=== PATIENT | female | born 1945 | race Caucasian/White ===

== ENCOUNTER → 2017-11-04 | Outpatient (CLI) | payer OTHER ==
[~2017-11-04] MED LIST: ARICEPT5 MG PO; ASPIR 8181 MG PO; ATORVASTATIN CA20 MG PO; BUPROPION HCL100 MG PO; DICYCLOMINE HCL20 MG PO; DILTIAZEM PO; FLUOXETINE HCL20 MG PO; FOSAMAX70 MG PO; GLUCOSAMINE CH1 EAC2 PO; JANUMET 50-1,01 EACH PO; LEVOTHYROXINE75 MCG PO
== END ==
LOC: NPA 11:22
PROVIDERS: ATTEND Internal Medicine Pulmonary Disease
DX: Z02.89 Encounter for other administrative examinations (principal)
CPT/HCPCS: 36415; 83036; 84443

== ENCOUNTER → 2017-11-07 | Outpatient (CLI) | payer OTHER ==
[2017-11-07 17:58] LABS: ANION GAP 14.3 mmol/L (8-16); CREATININE, SERUM 0.98 mg/dL (0.57-1.11); POTASSIUM 3.3 mmol/L (3.5-5.1)
[2017-11-07 18:06] LABS: BASOPHILS % 0.3 % (0.0-1.0); EOSINOPHILS # (AUTO) 0.1 (0.0-0.4); EOSINOPHILS % 2.1 % (0.0-6.0); HEMATOCRIT 33.7 % (34.2-44.1); HEMOGLOBIN 11.5 g/dL (12.0-16.0); LYMPHOCYTES # (AUTO) 1.4 (1.0-3.2); MEAN CORPUSCULAR HEMOGLOBIN 33.1 pg (28-32); MEAN CORPUSCULAR HGB CONC 34.1 g/dL (31-35); MEAN CORPUSCULAR VOLUME 97.1 fL (81-99); MONOCYTES # (AUTO) 0.5 (0.2-0.8); MONOCYTES % 9.3 % (4.4-11.3); NEUTROPHILS # (AUTO) 3.6 (2.1-6.9); PLATELET COUNT 177 x10e3/uL (140-360); RED BLOOD COUNT 3.47 x10e6/uL (3.6-5.1); RED CELL DISTRIBUTION WIDTH 13.7 % (11.7-14.4)
== END ==
LOC: NPA 12:22
PROVIDERS: ATTEND Internal Medicine Pulmonary Disease
DX: Z02.89 Encounter for other administrative examinations (principal)
CPT/HCPCS: 36415; 80048; 85025

== ENCOUNTER → 2017-11-14 | Outpatient (CLI) | payer OTHER ==
[2017-11-14 18:13] LABS: BASOPHILS # (AUTO) 0.1 (0.0-0.1); BASOPHILS % 1.7 % (0.0-1.0); EOSINOPHILS # (AUTO) 0.2 (0.0-0.4); EOSINOPHILS % 3.4 % (0.0-6.0); HEMATOCRIT 37.2 % (34.2-44.1); HEMOGLOBIN 11.6 g/dL (12.0-16.0); LYMPHOCYTES # (AUTO) 1.5 (1.0-3.2); LYMPHOCYTES % 32.8 % (18.0-39.1); MEAN CORPUSCULAR HEMOGLOBIN 28.2 pg (28-32); MEAN CORPUSCULAR HGB CONC 31.2 g/dL (31-35); MEAN CORPUSCULAR VOLUME 90.3 fL (81-99); MONOCYTES # (AUTO) 0.7 (0.2-0.8); NEUTROPHILS # (AUTO) 2.2 (2.1-6.9); NEUTROPHILS % 47.9 % (38.7-80.0); PLATELET COUNT 317 x10e3/uL (140-360); RED BLOOD COUNT 4.12 x10e6/uL (3.6-5.1); RED CELL DISTRIBUTION WIDTH 16.2 % (11.7-14.4)
== END ==
LOC: NPA 12:00
DX: Z02.89 Encounter for other administrative examinations (principal)
CPT/HCPCS: 36415; 85025

== ENCOUNTER 2018-12-23 14:57 | Observation (INO) | payer MEDICARE ==
[~2018-12-23] VITALS: Ht 177.8 cm; Wt 118.4 kg
--- NOTE | 2018-12-23 10:25 | NUR ---
Got report from Lia, ER nurse. Patient is A&Ox2. Call light within reach. Came to unit via stretcher.
--- OUTSIDE RECORDS SUMMARY | 2018-12-23 14:59 | XMS REPORT | Clinical Summary ---
Author Author [facility] Organization [facility] Address Unknown Phone Unavailable Care Team Providers Care Securities Teller Name Role Phone Ce Liang PCP Unavailable Allergies Comments Active Allergy Reactions Severity Noted Date Piroxicam 12/05/2018 Morphine Anaphylaxis High 12/05/2018 Seldane 12/05/2018 Sulfa (Sulfonamide 12/05/2018 Antibiotics) Medications End Date Status Medication Sig Dispensed Refills Start Date 01/04/2019 Active ibuprofen (ADVIL,MOTRIN) Take 1 tablet 9 tablet 0 600 MG tablet (600 mg 9 total) by mouth every 6 (six) hours as needed for mild pain for up to 30 days. 01/04/2019 Active cyclobenzaprine Take 1 tablet 20 tablet 0 (FLEXERIL) 10 mg tablet (10 mg total) 9 by mouth 2 (two) times a day as needed for muscle spasms for up to 30 days. Active Problems Not on file Encounters Care Team Description Date Type Specialty Ingrid Olguin MD Fall, initial encounter (Primary Dx); Acute low back pain, unspecified back pain laterality, with sciatica presence unspecified 12/05/2018 Emergency Emergency Medicine after 12/22/2017 Social History Date Tobacco Use Types Packs/Day Years Used Never Smoker Smokeless Tobacco: Never Used Alcohol Use Drinks/Week oz/Week Comments No Alcohol Habits Answer Date Recorded How often do you have a drink containing alcohol? Never 12/05/2018 How many drinks containing alcohol do you have on Not asked a typical day when you are drinking? How often do you have six or more drinks on one Not asked occasion? Sex Assigned at Date Recorded Not on file Industry Job Start Date Occupation Not on file Not on file Not on file Travel End Travel History Travel Start No recent travel history available. Last Filed Vital Signs Time Taken Vital Sign Reading 12/05/2018 8:00 PM CDT Blood Pressure 169/98 12/05/2018 8:00 PM CDT Pulse 74 12/05/2018 8:00 PM CDT Temperature 37.1 C (98.7 F) 12/05/2018 8:00 PM CDT Respiratory Rate 16 12/05/2018 8:00 PM CDT Oxygen Saturation 94% - Inhaled Oxygen - Concentration 12/05/2018 2:02 PM CDT Weight 110 kg (242 lb) 12/05/2018 2:02 PM CDT Height 179.1 cm (5' 10.5") 12/05/2018 2:02 PM CDT Body Mass Index 34.23 Plan of Treatment Health Maintenance Due Date Last Done Comments BREAST CANCER SCREENING 1993 COLON CANCER SCREENING 1993 SHINGLES VACCINES (#1) 1993 65+ PNEUMOCOCCAL VACCINE 2008 (1 of 2 - PCV13) PNEUMOCOCCAL 2008 POLYSACCHARIDE VACCINE AGE 65 AND OVER INFLUENZA VACCINE 04/26/2018 Procedures Comments Procedure Name Priority Date/Time Associated Diagnosis XR LUMBAR SPINE COMPLETE STAT 12/05/2018 4+ VW 6:02 PM CDT XR THORACIC SPINE 3 VW STAT 12/05/2018 6:02 PM CDT XR SHOULDER 2+ VW LEFT STAT 12/05/2018 6:01 PM CDT XR CHEST 1 VW PORTABLE STAT 12/05/2018 6:[address] HEAD WO CONTRAST STAT 12/05/2018 3:[address] CERVICAL SPINE WO STAT 12/05/2018 CONTRAST 3:34 PM CDT after 12/22/2017 Results * XR Lumbar Spine Complete 4+ Vw (12/05/2018 6:02 PM CDT) Narrative Performed At EXAMINATION:XR LUMBAR SPINE COMPLETE 4VW [facility] CLINICAL HISTORY:[place] TECHNIQUE: AP, lateral bilateral posterior oblique, views of the lumbar spine were obtained. COMPARISON: None. IMPRESSION: There are postsurgical changes of L2-S1 posterior spinal fusion with bilateral screws and vertical rods with associated laminectomies and interbody graft at L5-S1. Hardware is grossly intact with S1 screws protruding slightly anterior to the anterior aspect of the sacrum. No definite acute lumbar spine fracture identified noting osteopenia decreases sensitivity for detection of acute fracture. There is mild height loss of L1 vertebral body anteriorly. There is atherosclerosis of the abdominal aorta and subtle levocurvature of the lumbar spine. There is L1-L2 disc degeneration with endplate sclerosis and osteophytosis. [id number] Procedure Note Interface, Radiology Results Incoming - 12/05/2018 6:22 PM CDT EXAMINATION: XR LUMBAR SPINE COMPLETE 4 VW CLINICAL HISTORY: Fracture shoulder TECHNIQUE: AP, lateral bilateral posterior oblique, views of the lumbar spine were obtained. COMPARISON: None. IMPRESSION: There are postsurgical changes of L2-S1 posterior spinal fusion with bilateral screws and vertical rods with associated laminectomies and interbody graft at L5-S1. Hardware is grossly intact with S1 screws protruding slightly anterior to the anterior aspect of the sacrum. No definite acute lumbar spine fracture identified noting osteopenia decreases sensitivity for detection of acute fracture. There is mild height loss of L1 vertebral body anteriorly. There is atherosclerosis of the abdominal aorta and subtle levocurvature of the lumbar spine. There is L1-L2 disc degeneration with endplate sclerosis and osteophytosis. [id number] Performing Organization Address [facility] [employer] Phone Number [email or web address] [place] [address] * XR Thoracic Spine 3 Vw (12/05/2018 6:02 PM CDT) Narrative Performed At EXAMINATION:XR THORACIC SPINE 3 VW [facility] CLINICAL HISTORY:Mid-back T-spine paininitial exam COMPARISON:None. FINDINGS: 3 views of the thoracic spine were obtained. Vertebral bodies are normal in height. No vertebral fracture. Degenerative changes. Alignment is normal. Soft tissues are normal. IMPRESSION: No acute osseous abnormality of the thoracic spine. [facility]-[id number] Procedure Note Interface, Radiology Results Incoming - 12/05/2018 6:08 PM CDT EXAMINATION: XR THORACIC SPINE 3 VW CLINICAL HISTORY: Mid-back T-spine pain initial exam COMPARISON: None. FINDINGS: 3 views of the thoracic spine were obtained. Vertebral bodies are normal in height. No vertebral fracture. Degenerative changes. Alignment is normal. Soft tissues are normal. IMPRESSION: No acute osseous abnormality of the thoracic spine. [facility]-[id number] Performing Organization Address [facility]/[employer] Phone Number [email or web address] [place] [address] * XR Shoulder 2+ Vw Left (12/05/2018 6:01 PM CDT) Narrative Performed At EXAMINATION:XR SHOULDER 2VW LEFT [facility] CLINICAL HISTORY:fall COMPARISON:None. IMPRESSION: An intramedullary sherlyn is seen within the left humerus. The sherlyn spans an old fracture through the proximal left humerus. The left humerus appears to articulate normally with the glenoid fossa. Mild osteoarthritic degenerative changes seen within the glenohumeral joint. Bony resorption of the distal clavicle is seen. The acromioclavicular joint and coracoclavicular space are grossly intact. The clavicle is grossly unremarkable. The visualized portions of the left hemithorax are unremarkable. [facility]-[id number] Procedure Note Interface, Radiology Results Incoming - 12/05/2018 6:07 PM CDT EXAMINATION: XR SHOULDER 2 VW LEFT CLINICAL HISTORY: fall COMPARISON: None. IMPRESSION: An intramedullary sherlyn is seen within the left humerus. The sherlyn spans an old fracture through the proximal left humerus. The left humerus appears to articulate normally with the glenoid fossa. Mild osteoarthritic degenerative changes seen within the glenohumeral joint. Bony resorption of the distal clavicle is seen. The acromioclavicular joint and coracoclavicular space are grossly intact. The clavicle is grossly unremarkable. The visualized portions of the left hemithorax are unremarkable. [id number] Performing Organization Address City/State/[facility] Phone Number [facility] [address] [place] [address] * XR Chest 1 Vw Portable (12/05/2018 6:00 PM CDT) Narrative Performed At EXAMINATION:XR CHEST 1 VW PORTABLE [facility] CLINICAL HISTORY:fall COMPARISON:None IMPRESSION: An AP radiograph of the chest was submitted for interpretation. The lungs are hyperinflated. No focal consolidation or pleural effusion. No pneumothorax or midline shift. The mediastinal contours and cardiac silhouette are unremarkable. Orthopedic hardware is seen within the proximal left humerus. The bones are otherwise unremarkable. [facility]-[id number] Procedure Note Interface, Radiology Results Incoming - 12/05/2018 6:05 PM CDT EXAMINATION: XR CHEST 1 VW PORTABLE CLINICAL HISTORY: fall COMPARISON: None IMPRESSION: An AP radiograph of the chest was submitted for interpretation. The lungs are hyperinflated. No focal consolidation or pleural effusion. No pneumothorax or midline shift. The mediastinal contours and cardiac silhouette are unremarkable. Orthopedic hardware is seen within the proximal left humerus. The bones are otherwise unremarkable. [id number] Performing Organization Address City/State/Zipcode Phone Number [facility] [address] [place] [address] * CT Head Wo Contrast (12/05/2018 3:47 PM CDT) Narrative Performed At Procedure:[facility]:INGRID MENDOZA HISTORY:fall COMPARISON: None TECHNIQUE: Axial images were obtained of the head without intravenous contrast. All CT scan performed using radiation dose reduction techniques. Technical factors are evaluated and adjusted to ensure appropriate moderation of exposure. Automated dose management technology is applied to adjust the radiation dose to minimize expose whileachieving a diagnostic quality image. FINDINGS: Age-appropriate cortical atrophy is noted. Sandhu-white matter differentiation is maintained. The ventricular system is symmetric and midline. Moderate ischemic small vessel white matter disease is seen. 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 There is no evidence of acute hemorrhage. Nointra-axial or extra-axial lesion is seen. Mild mucosal thickening of the ethmoid air cells is noted. The visualized portion of the orbits, paranasal sinuses and mastoid air cells is otherwise unremarkable. The calvarium is intact. Scattered atherosclerotic calcifications of the intracranial vessel are noted. IMPRESSION: No CT evidence of acute intracranial abnormality or hemorrhage. [id number] Procedure Note Interface, Radiology Results Incoming - 12/05/2018 3:58 PM CDT Procedure:CT HEAD WO CONTRAST REFERRING PHYSICIAN:INGRID MENDOZA HISTORY: fall COMPARISON: None TECHNIQUE: Axial images were obtained of the head without intravenous contrast. All CT scan performed using radiation dose reduction techniques. Technical factors are evaluated and adjusted to ensure appropriate moderation of exposure. Automated dose management technology is applied to adjust the radiation dose to minimize expose while achieving a diagnostic quality image. FINDINGS: Age-appropriate cortical atrophy is noted. Sandhu-white matter differentiation is maintained. The ventricular system is symmetric and midline. Moderate ischemic small vessel white matter disease is seen. 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 There is no evidence of acute hemorrhage. No intra-axial or extra-axial lesion is seen. Mild mucosal thickening of the ethmoid air cells is noted. The visualized portion of the orbits, paranasal sinuses and mastoid air cells is otherwise unremarkable. The calvarium is intact. Scattered atherosclerotic calcifications of the intracranial vessel are noted. IMPRESSION: No CT evidence of acute intracranial abnormality or hemorrhage. [id number] Performing Organization Address City/State/Zipcode Phone Number [facility] [address] [place] [address] * CT Cervical Spine Wo Contrast (12/05/2018 3:34 PM CDT) Narrative Performed At EXAMINATION:CT CERVICAL SPINE WO CONTRAST [facility] CT IMAGING WAS PERFORMED WITH ITERATIVE RECONSTRUCTION TECHNIQUE AND/OR AUTOMATED EXPOSURE CONTROL TO REDUCE RADIATION DOSE. CLINICAL HISTORY:C-spine fusionfollow up COMPARISON:None. TECHNIQUE: Axial helical CT images throughout the cervical spine were performed without IV contrast. Sagittal and coronal reformatted images were generated. FINDINGS: 1.There is no definite evidence of acute fracture, traumatic subluxation, or prevertebral soft tissue swelling. There are fragmented anterior osteophytes at the anterior inferior aspect of the centrum of C4 and to much lesser degree C5 which are probably chronic although acute osteophyte fracture cannot be excluded. There is no prevertebral soft tissue swelling. There is also minimal loss of vertical height of the anterior aspect of the centrum of T1 but no acute fracture demonstrated. There is otherwise no acute abnormality. 2.There is moderate ventral spondylosis and disc space narrowing at C4-5 and C5-6. There is mild ventral spondylosis at C6-7 and lesser degree C3-4. There are marked degenerative and hypertrophic changes in the facet joint on the right at C3-4 with milder changes on the left side where there is also grade 1 spondylolisthesis. There is slight retrolisthesis is C4-5 where there are mild degenerative changes the facet joints. There are mild degenerative changes the facet joints at C5-6 where there is also slight retrolisthesis. There is moderate degenerative change in the facet joint on the left at C6-7 and to less on the right side as well as mild degenerative change in the facet joint left greater than right at C7-T1. 3. The findings result in no significant spinal canal stenosis. There is moderate foraminal stenosis right greater than left C3-4, moderate to marked foraminal stenosis right and mild to moderate foraminal stenosis left C4-5, mild to moderate foraminal stenosis left and mild foraminal stenosis right C5-6. IMPRESSION: No definite acute cervical spine bony abnormality. See discussion above. Degenerative changes. [facility]-[id number] Procedure Note Interface, Radiology Results - 12/05/2018 3:57 PM CDT EXAMINATION: CT CERVICAL SPINE WO CONTRAST CT IMAGING WAS PERFORMED WITH ITERATIVE RECONSTRUCTION TECHNIQUE AND/OR AUTOMATED EXPOSURE CONTROL TO REDUCE RADIATION DOSE. CLINICAL HISTORY: C-spine fusion follow up COMPARISON: None. TECHNIQUE: Axial helical CT images throughout the cervical spine were performed without IV contrast. Sagittal and coronal reformatted images were generated. FINDINGS: 1. There is no definite evidence of acute fracture, traumatic subluxation, or prevertebral soft tissue swelling. There are fragmented anterior osteophytes at the anterior inferior aspect of the centrum of C4 and to much lesser degree C5 which are probably chronic although acute osteophyte fracture cannot be excluded. There is no prevertebral soft tissue swelling. There is also minimal loss of vertical height of the anterior aspect of the centrum of T1 but no acute fracture demonstrated. There is otherwise no acute abnormality. 2. There is moderate ventral spondylosis and disc space narrowing at C4-5 and C5- 6. There is mild ventral spondylosis at C6-7 and lesser degree C3-4. There are marked degenerative and hypertrophic changes in the facet joint on the right at C3-4 with milder changes on the left side where there is also grade 1 spondylolisthesis. There is slight retrolisthesis is C4-5 where there are mild degenerative changes the facet joints. There are mild degenerative changes the facet joints at C5-6 where there is also slight retrolisthesis. There is moderate degenerative change in the facet joint on the left at C6-7 and to less on the right side as well as mild degenerative change in the facet joint left greater than right at C7-T1. 3. The findings result in no significant spinal canal stenosis. There is moderate foraminal stenosis right greater than left C3-4, moderate to marked foraminal stenosis right and mild to moderate foraminal stenosis left C4-5, mild to moderate foraminal stenosis left and mild foraminal stenosis right C5-6. IMPRESSION: No definite acute cervical spine bony abnormality. See discussion above. Degenerative changes. [facility]-[id number] Performing Organization Address City/State/Zipcode Phone Number [facility] [address] [place] [phone] after 12/22/2017 Insurance Payer Benefit Subscriber ID Type Phone Address Plan / Group [employer] MEDICARE HUMANA xxxxxxxxx PPO MEDICARE PPO/PFFS/E RS [facility] Advance Directives Patient has advance care planning documents on file. For more information, maximino e contact: Johnnie Mercado [address] [place] [address]
--- OUTSIDE RECORDS SUMMARY | 2018-12-23 15:00 | XMS REPORT ---
Author Author Winston Montero Organization [employer] Address Unknown Phone Unavailable Care Team Providers Care Scenic Artist Name Role Phone Winston Montero CP Unavailable Allergies, Adverse Reactions, Alerts Substance Reaction Event Type Morphine Sulfate Info Not Available Drug Allergy Feldene Info Not Available Drug Allergy Most sulfa type drugs Info Not Available Non Drug Allergy Seldene Info Not Available Non Drug Allergy Problems Problem Type Condition Code Onset Dates Condition Status Assessment NSTEMI (non-ST elevated myocardial infarction) I21.4 Active Problem Benign hypertensive heart disease without congestive heart failure I11.9 Active Problem Atherosclerosis of [place] coronary artery of [place] heart without angina pectoris I25.10 Active Problem Anxiety F41.9 Active Assessment Anxiety F41.9 Active Assessment Atherosclerosis of [place] coronary artery of [place] heart without angina pectoris I25.10 Active Problem NSTEMI (non-ST elevated myocardial infarction) I21.4 Active Assessment Benign hypertensive heart disease without congestive heart failure I11.9 Active Medications Medication Code System Code Instructions Start Date End Date Status Dosage Seroquel [facility] 76723541688 25 MG Orally Once a day Active 1 tablet Exelon [facility] [address]-92 Transdermal Once a day Active 1 patch to skin Omeprazole [facility] [address]-27 20 MG Orally Twice a day Active 1 capsule Fosamax [facility] [address]-75 70 MG Orally Once a week Active 1 tablet Ondansetron [facility] 26711145514 4 MG Orally every 8 hrs Active 1 tablet on the tongue and allow to dissolve Aspirin [facility] 48949916152 81 MG Orally Active not defined Senna [facility] [address]48-[address] Active not defined Vitamin D-3 [facility] [address]69[address] Active not defined Gabapentin [facility] [address]-99 100 MG Orally Once a day Active 1 capsule Diltiazem HCl [facility] [address]-73 120 MG Orally Once a day hold if top BP is less than 110, bottom less than 70 Active 1 tablet before meals Levothyroxine Sodium [facility] 14616785522 75 MCG Orally Once a day Active 1 tablet on an empty stomach in the morning Glucosamine Chondr Complex [facility] 76728120070 500-400 MG Orally Once a day Active 1 capsule with a meal [place] [facility] 38151885540 5-325 MG Orally every 6 hrs Active 1 tablet as needed Fluoxetine HCl [facility] 05188757453 20 mg Orally twice a day (bid) Active 1 capsule in the morning Cozaar [facility] [address]-74 Active not defined Lorazepam [facility] [address]-32 0.5 MG Orally Twice a day Active 1 tablet as needed Vital Signs Date/Time: January 16, 2018 BMI 39.25 Index Weight 201 lbs Height 5'11 in Cardiac Monitoring Heart Rate 68 /min Blood Pressure Diastolic 64 mm Hg Blood Pressure Systolic 138 mm Hg Results No Known Results Summary Purpose [employer] Submission
--- OUTSIDE RECORDS SUMMARY | 2018-12-23 15:00 | XMS REPORT ---
Author Author Winston Montero Organization [employer] Address Unknown Phone Unavailable Care Team Providers Care Electrical Engineering Director Name Role Phone Winston Montero CP Unavailable Allergies, Adverse Reactions, Alerts Substance Reaction Event Type Morphine Sulfate Info Not Available Drug Allergy Feldene Info Not Available Drug Allergy Most sulfa type drugs Info Not Available Non Drug Allergy Seldene Info Not Available Non Drug Allergy Problems Problem Type Condition Code Onset Dates Condition Status Assessment Precordial pain R07.2 Active Assessment Atherosclerosis of [place] coronary artery of [place] heart without angina pectoris I25.10 Active Assessment NSTEMI (non-ST elevated myocardial infarction) I21.4 Active Problem Anxiety F41.9 Active Problem Benign hypertensive heart disease without congestive heart failure I11.9 Active Problem 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 Assessment Benign hypertensive heart disease without congestive heart failure I11.9 Active Assessment Anxiety F41.9 Active Problem Atherosclerosis of [place] coronary artery of [place] heart without angina pectoris I25.10 Active Problem NSTEMI (non-ST elevated myocardial infarction) I21.4 Active Assessment Shortness of breath R06.02 Active Assessment 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 Assessment Other symptoms involving cardiovascular system R09.89 Active Medications Medication Code System Code Instructions Start Date End Date Status Dosage Fosamax [facility] 90355913045 70 MG Orally Once a week Active 1 tablet Diltiazem HCl [facility] 40288821685 120 MG Orally Once a day hold if top BP is less than 110, bottom less than 70 Active 1 tablet before meals Levothyroxine Sodium [facility] 39218303093 75 MCG Orally Once a day Active 1 tablet on an empty stomach in the morning Fair Play [facility] [address]-68 5-325 MG Orally twice a day Active 1 tablet as needed Fluoxetine HCl [facility] 99524290138 20 mg Orally twice a day (bid) Active 1 capsule in the morning Exelon [facility] [address]-02 Transdermal Once a day Active 1 patch to skin Seroquel [facility] 03729976149 25 MG Orally Once a day Active 1 tablet Senna [facility] [address] Active not defined Ondansetron [facility] 23895586485 4 MG Orally every 8 hrs Active 1 tablet on the tongue and allow to dissolve Omeprazole [facility] 88578075326 20 MG Orally Twice a day Active 1 capsule Glucosamine Chondr Complex [facility] 39283340503 500-400 MG Orally Once a day Active 1 capsule with a meal Vitamin D-3 [facility] 0[address] Active not defined Gabapentin [facility] 93827578315 300 MG Orally Once a day Active 1 capsule Aspirin [facility] 01161884607 81 MG Orally Active not defined Lorazepam [facility] 00659604789 0.5 MG Orally Twice a day Active 1 tablet as needed Vital Signs Date/Time: March 21, 2018 BMI 42.77 Index Weight 219 lbs Height 5'11 in Cardiac Monitoring Heart Rate 72 /min Blood Pressure Diastolic 68 mm Hg Blood Pressure Systolic 128 mm Hg Results No Known Results Summary Purpose [employer] Submission
--- OUTSIDE RECORDS SUMMARY | 2018-12-23 15:00 | XMS REPORT | Encounter Summary ---
Author Organization Unknown Address [address] [place] [address] Phone [phone] Care Team Providers Care Creel Clerk Name Role Phone Ce Liang APN 3 [phone] Reason for Visit Medical Complaint Instructions 1. Acute urinary tract infection urinalysis, dipstick cefuroxime axetil 250 mg tablet culture, urine 2. Right flank pain flank pain: care instructions 3. Body mass index 30+ - obesity Discussion Note Pt. is NAD. Take medications as prescribed; f/u with PCP within 2-3 days should symptoms worsen as discussed. ER precautions and Care instructions given. Verbalized all instructions. No further questions upon d/c. Plan of Care Patient Instructions Take your antibiotics as directed. Do not stop taking them just because you feel better. You need to take the full course of antibiotics. Drink extra water and other fluids for the next day or two. This may help wash out the bacteria that are causing the infection. Avoid drinks that are carbonated or have caffeine. They can irritate the bladder. Urinate often. Try to empty your bladder each time. To relieve pain, take a hot bath or lay a heating pad set on low over your lower belly or genital area. Never go to sleep with a heating pad in place. To Prevent UTI's in the future, lau sure to: Drink plenty of water each day. This helps you urinate often, which clears bacteria from your system. Consider adding cranberry juice to your diet. Urinate when you need to. Urinate right after you have sex. Change sanitary pads often. Avoid douches, bubble baths, feminine hygiene sprays, and other feminine hygiene products that have deodorants. After going to the bathroom, wipe from front to back. Reminders Provider Appointments None recorded. Lab Urinalysis, Dipstick 05/13/2018 [facility] Culture, Urine 05/13/2018 [facility] Referral None recorded. Procedures None recorded. Surgeries None recorded. Imaging None recorded. Medications Name Start Date alendronate 70 mg tablet Aspir-Low 81 mg tablet,delayed release TAKE 1 TABLET BY MOUTH EVERY DAY cefuroxime axetil 250 mg tablet Take 1 tablet every 12 hours by oral route as directed for 5 days. dicyclomine 20 mg tablet Exelon Patch 4.6 mg/24 hr transdermal fluoxetine 20 mg capsule Fluzone High-Dose 4253-5774 (PF) 180 mcg/0.5 mL intramuscular syringe gabapentin 300 mg capsule levothyroxine 75 mcg tablet lorazepam 0.5 mg tablet losartan 50 mg tablet omeprazole 20 mg capsule,delayed release ondansetron HCl 4 mg tablet quetiapine 25 mg tablet Medications Administered None recorded. Vitals Height Weight BMI Blood Pressure 5 ft 11.5 in 228 lbs 31.4 kg/m2 120/70 mm[Hg] Lab Results Date Name Specimen Result Interpretation Description Value Range Status Address 05/13/2018 Urinalysis, Dipstick Color : Yellow [facility]: [address] [place] [address] Clarity : Clear [facility]: [address] [place] [address] Leukocytes : Small [facility]: [address] [place] [address] Nitrites : Negative [facility]: [address] [place] [address] Urobilinogen : Normal [facility]: [address] [place] [address] Protein : Trace [facility]: [address] [place] [address] Ph : 5.5 [facility]: [address] [place] [address] Blood : Hemolyzed Trace [facility]: [address] [place] [address] Specific [place] : 1.010 [facility]: [address] [place] [address] Ketones : Negative [facility]: [address] [place] [address] Bilirubin : Negative [facility]: [address] [place] [address] Glucose Negative [facility]: [address] [place] [address] Allergies Code Code System Name Reaction Severity Status Onset 19720503 RxNorm Feldene Active 7052 RxNorm Morphine Active Seldane Active Sulfa (Sulfonamide Antibiotics) Active Problems Name Status Onset Date Source Acute Urinary Tract Infection Active 05/13/2018 Procedures Date Name Performed by Cholecystectomy Information not available Hysterectomy Information not available Vaccine List None recorded. Social History Smoking Status Never Smoker Past Encounters 05/13/2018 Acute Urinary Tract Infection; Right Flank Pain; Body Mass Index 30+ - Obesity Deborah Tucker, JASON-C: [address] [facility], [place] [address], Ph. History of Present Illness [id number] Reported By: Patient HPI: Location: urethra. Quality: pain, burning. Severity: worsening, mild. Duration: started 5 day ago, constant. Onset/Timing: gradual. Context: not sexually active, no known exposure to STD, no prior history of STDs, history of urine cultures/antibiotic treatment, wipes anterior to posterior. Modifying factors ; Has not tried anything OTC; Reports has heavy caffeine intake which has worsened it. Associated Symptoms: no fever/chills, no jaundice, no blood in the urine, no vaginal discharge, no blisters on genitals, no rash on genitals, no muscle aches, no headache, flank pain, pain during urination, urgency, urinary frequency Notes: No other symptoms reported Review of Systems:ROS as noted in the HPI Review of Systems Basic Reported By: Patient Physical Exam Adult Basic, Adult Female Complete Reported By: Patient Constitutional: General Appearance: healthy-appearing, well-nourished, well-developed. Level of Distress: NAD. Ambulation: ambulating normally Psychiatric: Mental Status: active and alert. Orientation: to time, to place, to person Lungs: Respiratory effort: no dyspnea, no tachypnea, no use of accessory muscles, no intercostal retractions. Auscultation: breath sounds normal Cardiovascular: Heart Auscultation: RRR, no murmurs Neurologic: Gait and Station: normal gait, normal station Skin: Inspection and palpation: no rash, no lesions, no ulcer, no abnormal nevi, no induration, no nodules, good turgor, no jaundice; On visible skin. Nails: normal Abdomen: Bowel Sounds: normal. Inspection and Palpation: soft, non-distended, no tenderness, no guarding, no rebound tenderness, no masses, CVA tenderness. Liver: non-tender, no hepatomegaly. Spleen: non-tender, no splenomegaly. Hernia: none palpable
--- OUTSIDE RECORDS SUMMARY | 2018-12-23 15:00 | XMS REPORT ---
Author Author Winston Montero Organization [employer] Address Unknown Phone Unavailable Care Team Providers Care House Wirer Helper Name Role Phone Winston Montero CP Unavailable [...] heart failure I11.9 Active Problem Atherosclerosis of [place] coronary artery of [place] heart without angina pectoris I25.10 Active Problem Anxiety F41.9 Active Assessment Anxiety F41.9 Active Assessment Atherosclerosis of [place] coronary artery of [place] heart without angina pectoris I25.10 Active Problem NSTEMI (non-ST elevated myocardial infarction) I21.4 Active Assessment Benign hypertensive heart disease without congestive heart failure I11.9 Active Medications Medication Code System Code Instructions Start Date End Date Status Dosage Exelon [facility] [address]-28 Transdermal Once a day Active 1 patch to skin Cozaar [facility] [address]-52 Active not defined Fluoxetine HCl [facility] 55564442066 20 mg Orally twice a day (bid) Active 1 capsule in the morning Levothyroxine Sodium [facility] 40186152957 75 MCG Orally Once a day Active 1 tablet on an empty stomach in the morning Seroquel [facility] [address]-25 Active not defined Vital Signs Date/Time: Nov 17, 2017 BMI 39.45 Index Weight 202 lbs Height 5'11 in Cardiac Monitoring Heart Rate 79 /min Blood Pressure Diastolic 72 mm Hg Blood Pressure Systolic 126 mm Hg Results No Known Results Summary Purpose [employer] Submission
--- OUTSIDE RECORDS SUMMARY | 2018-12-23 15:00 | XMS REPORT | Continuity of Care Document ---
Author Author [facility] Interface Address Unknown Phone Unavailable Problems Problem Status Onset Date Classification Date Reported Comments Source Body mass index 30+ - obesity 05/13/2018 Diagnosis 05/13/2018 [facility] Right flank pain 05/13/2018 Diagnosis 05/13/2018 [facility] Acute urinary tract infection 05/13/2018 Diagnosis 05/13/2018 [facility] Acute Urinary Tract Infection 05/13/2018 Problem 05/13/2018 [facility] NSTEMI Active Diagnosis 04/27/2018 Winston Montero Benign hypertensive heart disease without congestive heart failure Active Problem 04/27/2018 Winston Montero Atherosclerosis of [place] coronary artery of [place] heart without angina pectoris Active Diagnosis 04/27/2018 Winston Montero Anxiety Active Problem 04/27/2018 Winston Montero Precordial pain Active Diagnosis 04/27/2018 Winston Montero Atheroscler-limb&claudic Active Problem 04/27/2018 Winston Montero Shortness of breath Active Diagnosis 04/27/2018 Winston Montero Other symptoms involving cardiovascular system Active Diagnosis 04/27/2018 Winston Montero Medications Medication Details Route Status Patient Instructions Ordering Provider Order Date Source Alendronic acid 70 MG Oral Tablet alendronate 70 mg tablet Active [facility] Aspirin 81 MG Delayed Release Oral Tablet [Aspir-Low] Aspir- Low 81 mg tablet,delayed release TAKE 1 TABLET BY MOUTH EVERY DAY Active [facility] Cefuroxime 250 MG Oral Tablet cefuroxime axetil 250 mg tablet Take 1 tablet every 12 hours by oral route as directed for 5 days. Active [facility] Dicyclomine Hydrochloride 20 MG Oral Tablet dicyclomine 20 mg tablet Active [facility] 24 HR rivastigmine 0.192 MG/HR Transdermal System [Exelon] Exelon Patch 4.6 mg/24 hr transdermal Active [facility] Fluoxetine 20 MG Oral Capsule fluoxetine 20 mg capsule Active [facility] 0.5 ML influenza A virus A/[place] (H3N2) antigen 0.12 MG/ML / influenza A virus A/ (H1N1) antigen 0.12 MG/ML / influenza B virus B/[place]/ antigen 0.12 MG/ML Prefilled Syringe [Fluzone 7857-2276] Fluzone High-Dose 8152-6744 (PF) 180 mcg/0.5 mL intramuscular syringe Active [facility] gabapentin 300 MG Oral Capsule gabapentin 300 mg capsule Active [facility] Levothyroxine Sodium 0.075 MG Oral Tablet levothyroxine 75 mcg tablet Active [facility] Lorazepam 0.5 MG Oral Tablet lorazepam 0.5 mg tablet Active [facility] Losartan Potassium 50 MG Oral Tablet losartan 50 mg tablet Active [facility] Omeprazole 20 MG Delayed Release Oral Capsule omeprazole 20 mg capsule,delayed release Active [facility] Ondansetron 4 MG Oral Tablet ondansetron HCl 4 mg tablet Active [facility] quetiapine 25 MG Oral Tablet quetiapine 25 mg tablet Active [facility] Exelon 1 patch to skin Transdermal Active Transdermal Once a day [facility] Cozaar not defined NA Active [facility] Fluoxetine HCl 1 capsule in the morning Orally Active 20 mg Orally twice a day (bid) [facility] Levothyroxine Sodium 1 tablet on an empty stomach in the morning Orally Active 75 MCG Orally Once a day [facility] Seroquel not defined NA Active [facility] Fosamax 1 tablet Orally Active 70 MG Orally Once a week [facility] Diltiazem HCl 1 tablet before meals Orally Active 120 MG Orally Once a day hold if top BP is less than 110, bottom less than 70 [facility] [place] 1 tablet as needed Orally Active 5-325 MG Orally twice a day [facility] Seroquel 1 tablet Orally Active 25 MG Orally Once a day [facility] Senna not defined NA Active [facility] Ondansetron 1 tablet on the tongue and allow to dissolve Orally Active 4 MG Orally every 8 hrs [facility] Omeprazole 1 capsule Orally Active 20 MG Orally Twice a day [facility] Glucosamine Chondr Complex 1 capsule with a meal Orally Active 500-400 MG Orally Once a day [facility] Vitamin D-3 not defined NA Active [facility] Gabapentin 1 capsule Orally Active 300 MG Orally Once a day [facility] Aspirin not defined Orally Active 81 MG Orally [facility] Lorazepam 1 tablet as needed Orally Active 0.5 MG Orally Twice a day [facility] Omeprazole 1 capsule Orally Active 20 MG Orally Twice a day [facility] Fosamax 1 tablet Orally Active 70 MG Orally Once a week [facility] Gabapentin 1 capsule Orally Active 100 MG Orally Once a day [facility] Diltiazem HCl 1 tablet before meals Orally Active 120 MG Orally Once a day hold if top BP is less than 110, bottom less than 70 [facility] [place] 1 tablet as needed Orally Active 5-325 MG Orally every 6 hrs [facility] Lorazepam 1 tablet as needed Orally Active 0.5 MG Orally Twice a day [facility] Allergies, Adverse Reactions, Alerts Substance Category Reaction Severity Reaction type Status Date Reported Comments Source Morphine Sulfate Adverse Reaction Info Not Available Adverse Reaction Active 03/21/2018 [facility] Most sulfa type drugs Adverse Reaction Info Not Available Adverse Reaction Active 03/21/2018 [facility] Seldene Adverse Reaction Info Not Available Adverse Reaction Active 03/21/2018 [facility] Morphine Allergy to substance 05/13/2018 [facility] Sulfa (Sulfonamide Antibiotics) Allergy to substance 05/13/2018 [facility] Seldane Allergy to substance 05/13/2018 [facility] Feldene Allergy to substance 05/13/2018 [facility] Immunizations Immunization Date Given Site Status Last Updated Comments Source Results Order Name Results Value Reference Range Date Interpretation Comments Source Urinalysis macro (dipstick) panel - Urine COLOR : Yellow 05/13/2018 [facility] Urinalysis macro (dipstick) panel - Urine CLARITY : Clear 05/13/2018 [facility] Urinalysis macro (dipstick) panel - Urine LEUKOCYTES : Small 05/13/2018 [facility] Urinalysis macro (dipstick) panel - Urine NITRITES : Negative 05/13/2018 [facility] Urinalysis macro (dipstick) panel - Urine UROBILINOGEN : Normal 05/13/2018 [facility] Urinalysis macro (dipstick) panel - Urine PROTEIN : Trace 05/13/2018 [facility] Urinalysis macro (dipstick) panel - Urine pH : 5.5 05/13/2018 [facility] Urinalysis macro (dipstick) panel - Urine BLOOD : Hemolyzed Trace 05/13/2018 [facility] Urinalysis macro (dipstick) panel - Urine SPECIFIC GRAVITY : 1.010 05/13/2018 [facility] Urinalysis macro (dipstick) panel - Urine KETONES : Negative 05/13/2018 [facility] Urinalysis macro (dipstick) panel - Urine BILIRUBIN : Negative 05/13/2018 [facility] Urinalysis macro (dipstick) panel - Urine GLUCOSE Negative 05/13/2018 [facility] Vital Signs Vital Sign Value Date Comments Source Diastolic (mm Hg) 70 05/13/2018 [facility] Height 71.5 05/13/2018 [facility] Systolic (mm Hg) 120 05/13/2018 [facility] Weight 228 05/13/2018 [facility] Weight 219 03/21/2018 Ahmed Ahmed Heart Rate 72 03/21/2018 Ahmed Ahmed Diastolic (mm Hg) 68 03/21/2018 Ahmed Ahmed Systolic (mm Hg) 128 03/21/2018 Ahmed [facility] Weight 201 01/16/2018 Ahmed Ahmed Heart Rate 68 01/16/2018 Ahmed Ahmed Diastolic (mm Hg) 64 01/16/2018 Ahmed Ahmed Systolic (mm Hg) 138 01/16/2018 Ahmed Ahmed Weight 202 11/17/2017 Ahmed Ahmed Heart Rate 79 11/17/2017 Ahmed Ahmed Diastolic (mm Hg) 72 11/17/2017 Ahmed Ahmed Systolic (mm Hg) 126 11/17/2017 Ahmed Ahmed Encounters Location Location Details Encounter Type Encounter Number Reason For Visit Attending Provider ADM Date DC Date Status Source [place] - [facility] - [id number] Tucker, CHARGER-C: [address] [place] [address], Ph. [id number] Deborah Tucker 05/13/2018 [facility] Procedures Procedure Code Date Perfomer Comments Source Cholecystectomy [facility] Hysterectomy [facility]
[2018-12-23] MEDS ORDERED: EXELON1 EAC1 (15:21)
[2018-12-23] MEDS ORDERED: SENNA LAX8.6 MG (15:21)
[2018-12-23] MEDS ORDERED: ONDANSETRON2 MG/1 ML PO (15:21)
[2018-12-23] MEDS ORDERED: NORCO 5-325 TA1 EACH PO (15:21)
[2018-12-23] MEDS ORDERED: QUETIAPINE FUMA25 MG (15:21)
[2018-12-23] MEDS ORDERED: GABAPENTIN300 MG PO (15:21)
[2018-12-23] MEDS ORDERED: LOSARTAN POTAS100 MG PO (15:21)
[2018-12-23] MEDS ORDERED: LORAZEPAM0.5 MG PO (15:21)
[2018-12-23] MEDS ORDERED: HYDROCHLOROTHIA25 MG (15:21)
[2018-12-23] MEDS ORDERED: HYDROCODONE/APAP 10MG-325MG TAB PO ONE (16:30)
--- NOTE | 2018-12-23 17:03 | Diagnostic Imaging Report ---
Exams: Head and cervical spine CTs without IV contrast History: Trauma, fall, pain Comparison studies: No prior exams are available on the PACS for comparison the time of dictation. Technique: Axial images were obtained from the brain and cervical spine. Coronal and sagittal images reconstructed from the axial data. Dose modulation, iterative reconstruction, and/or weight based adjustment of the mA/kV was utilized to reduce the radiation dose to as low as reasonably achievable. Intravenous contrast: None Findings: Head CT: Scalp: No abnormalities. Bones: No fractures, blastic or lytic lesions. Extra-axial spaces: No masses. No fluid collections. Brain sulci: Mildly prominent. Ventricles: Mild compensatory dilatation. No hydrocephalus. Parenchyma: No mass, acute hemorrhage or acute cortical vascular insults. Confluent hypodensity in the supratentorial white matter are nonspecific but most compatible with chronic microvascular ischemic changes. Mild generalized volume loss with slightly greater distortion volume loss along the anteromedial temporal lobes and hippocampus (left greater than right). Similar findings can be seen along the Alzheimer's/dementia spectrum in in the appropriate clinical setting. Sellar/suprasellar region: No abnormalities. Craniocervical junction: The foramen magnum is patent. No Chiari one malformation. Cervical spine CT: Fractures: None. Soft tissues: No gross abnormalities. Atlantoaxial articulation: Intact with moderate degenerative changes. Alignment: Minimal anterolisthesis of C3 3 on C4 is most likely degenerative in etiology. Mild kyphosis centered at C4-C5. Cervicomedullary junction: No abnormalities. The foramen magnum is patent. Vertebrae: No infection or neoplasm. Degenerative changes: Mildly degenerated disks at C4-C5, C5-C6. No significant canal stenosis. Varying degrees of moderate to severe multilevel facet arthrosis. Multilevel uncovertebral and facet arthrosis result in multilevel foraminal stenosis (moderate bilaterally at C3-C4, moderate right and mild left at C4-C5, moderate left and mild right at C5-C6). Incidental findings: Atherosclerotic calcifications in the carotid siphons in in the left intradural vertebral artery. IMPRESSION: Head CT: 1. No acute abnormalities. 2. Severe chronic microvascular ischemic changes. 3. Mild generalized volume loss with disproportionate anteromedial temporal lobe and hippocampal atrophy as described above. Cervical spine CT: 1. No cervical spine fracture or acute subluxation. 2. Minimal anterolisthesis of C3 on C4 is likely degenerative. 3. Multilevel degenerative changes as described. 4. Cannot exclude ligament, spinal cord and or vascular abnormalities on the basis of this examination. Signed by: Dr. Niels Corral M.D. on 12/23/2018 4:59 PM
--- NOTE | 2018-12-23 17:33 | Diagnostic Imaging Report ---
History: Trauma, fall, pain Comparison studies: None available at the time of dictation. Technique: Axial images were obtained through the lumbar spine. Coronal and sagittal images reconstructed from the axial data. Dose modulation, iterative reconstruction, and/or weight based adjustment of the mA/kV was utilized to reduce the radiation dose to as low as reasonably achievable. Intravenous contrast: None Findings: Extensive bone demineralization and artifact from metallic fusion hardware limit evaluation of finding toe including evaluation for subtle fractures. Number of non-rib bearing vertebral bodies: 5 Alignment: Mild lumbar curvature convex to the left. Soft tissues: Chronic postsurgical changes in the dorsal lumbosacral soft tissues Paraspinal muscles: Moderate to severe symmetric dorsal lumbar paraspinal muscular atrophy. Sacroiliac joints: Mild degenerative changes bilaterally. Vertebrae: Bones are demineralized. Age-indeterminate nondisplaced fracture at the junction of a prominent right anterior marginal osteophyte and and lateral margin of the right L2 vertebral body. Chronic-appearing nondisplaced fracture along the superior margin of the the same anterolateral osteophyte at the L1 level. Chronic-appearing superior L1 endplate compression fracture with approximate 40% height loss. No retropulsion. Postsurgical changes of posterior lateral L2-S1 fusion with bilateral fixation rods fixated via bilateral transpedicular screws from L2 through L5 and transsacral screws at S1 without evidence of hardware failure or hardware loosening. Bilateral laminectomies are present from L2 to L5 S1 and there are L5-S1 discectomy changes with disc spacer in place. Degenerative changes: L1-L2: Mild loss of disc height with vacuum phenomenon. Disc bulge with thickened and ossified ligamentum flavum and severe facet arthrosis with moderate to severe canal stenosis and severe right and mild left foraminal stenosis. L2-L3: Mildly degenerated disc with bilateral facet arthrosis. No significant canal or foraminal stenosis. L3-L4: Mildly degenerated disc with facet arthrosis without significant canal or foraminal stenosis. L4-L5: Degenerated disc and facet arthrosis with mild bilateral foraminal stenosis. No significant canal stenosis. L5-S1: Bilateral facet arthrosis with mild bilateral foraminal stenosis. No significant canal stenosis. Additional findings: Calcified atherosclerosis in the abdominal aorta IMPRESSION: 1. Age-indeterminate nondisplaced fracture along an L2 right anterior marginal osteophyte at its junction with the vertebral body. 2. Chronic-appearing superior L1 endplate compression fracture. 3. Prior L2-S1 laminectomies and posterior fusion and L5-S1 discectomy. 4. Significantly demineralized bones. 5. Multilevel degenerative changes most notable for moderate to severe canal stenosis and severe right foraminal stenosis at L1-L2. Findings discussed with Dr. Robertson at 5:20 PM on 12/23/2018. Signed by: Dr. Niels Corral M.D. on 12/23/2018 5:30 PM
[2018-12-23 17:44] LABS: CLARITY,URINE CLEAR (CLEAR); COLOR,URINE YELLOW (YELLOW)
[2018-12-23 17:45] LABS: BILIRUBIN,URINE NEGATIVE (NEGATIVE); KETONES,URINE NEGATIVE (NEGATIVE); LEUKOCYTE ESTERASE ,URINE NEGATIVE (NEGATIVE); NITRITE,URINE NEGATIVE (NEGATIVE); PROTEIN,URINE DIPSTICK NEGATIVE (NEGATIVE); URINE UROBILINOGEN 0.2 mg/dL (0.2 - 1)
[2018-12-23 17:50] LABS: RBC,URINE 0-5 /HPF (0-5); WBC,URINE (MAN) 0-5 /HPF (0-5)
[2018-12-23 17:51] LABS: HYALINE CASTS 0-1 (0-1)
[2018-12-23 18:47] LABS: BASOPHILS % 0.4 % (0.0-1.0); EOSINOPHILS # (AUTO) 0.1 (0.0-0.4); EOSINOPHILS % 0.6 % (0.0-6.0); HEMATOCRIT 36.1 % (34.2-44.1); HEMOGLOBIN 12.3 g/dL (12.0-16.0); LYMPHOCYTES # (AUTO) 2.4 (1.0-3.2); MEAN CORPUSCULAR HEMOGLOBIN 32.5 pg (28-32); MEAN CORPUSCULAR HGB CONC 34.1 g/dL (31-35); MEAN CORPUSCULAR VOLUME 95.5 fL (81-99); MONOCYTES # (AUTO) 0.8 (0.2-0.8); MONOCYTES % 9.1 % (4.4-11.3); NEUTROPHILS # (AUTO) 5.2 (2.1-6.9); NEUTROPHILS % 61.5 % (38.7-80.0); PLATELET COUNT 196 x10e3/uL (140-360); RED BLOOD COUNT 3.78 x10e6/uL (3.6-5.1); RED CELL DISTRIBUTION WIDTH 11.5 % (11.7-14.4)
[2018-12-23 18:51] LABS: INR 1.02; PROTHROMBIN TIME 13.9 seconds (11.9-14.5)
[2018-12-23 18:52] LABS: PARTIAL THROMBOPLASTIN TIME 25.2 seconds (23.8-35.5)
--- NOTE | 2018-12-23 19:10 | NUR ---
Walking rounds with TIM Fitzgerald. Patient in no distress at this time.
[2018-12-23 19:18] LABS: ALBUMIN 3.1 g/dL (3.5-5.0); ALBUMIN/GLOBULIN RATIO 0.7 (0.8-2.0); CALCIUM 10.4 mg/dL (8.4-10.2); CREATININE, SERUM 1.49 mg/dL (0.57-1.11); MAGNESIUM 1.8 MG/DL (1.3-2.1)
[2018-12-23 19:37] LABS: CREATINE KINASE MB 0.3 ng/mL (0-5.0); THYROID STIMULATING HORMONE 0.438 uIU/mL (0.350-4.940)
--- OUTSIDE RECORDS SUMMARY | 2018-12-23 19:44 | XMS REPORT ---
Author Author [facility] Address Unknown Phone Unavailable Care Team Providers Care Research Rn Spec Name Role Phone Tessa MARTINEZ Unavailable Unavailable Problems This patient has no known problems. Allergies, Adverse Reactions, Alerts This patient has no known allergies or adverse reactions. Medications This patient has no known medications. Results Test Description Test Time Test Comments Text Results Atomic Results Result Comments CT LUMBAR SPINE WO 2018-12-23 17:05:00 [place] [id number] Patient Name: FRANKLIN CASANOVA MR #: [id number] : 1945 Age/Sex: 73/F Req #: [id number] Adm Physician: Ordered by: SALONI MARTINEZ MD Report #: [id number] Location: ER Room/Bed: Procedure: [id number] CT/CT LUMBAR SPINE WO Exam Date: 12/23/18 Exam Time: 1600 REPORT STATUS: Signed History: Trauma, fall, pain Comparison studies: None avail able at the time of dictation. Technique: Axial images were obtained through the lumbar spine. Coronal and sagittal images reconstructed from the axial data. Dose modulation, iterative reconstruction, and/or weight based adjustment of the mA/kV was utilized to reduce the radiation dose to as low as reasonably achievable. Intravenous contrast: None Findings: Extensive bone demineralization and artifact from metallic fusion hardware limit evaluation of finding toe including evaluation for subtle fractures. Number of non-rib bearing vertebral bodies: 5 Alignment: Mild lumbar curvature convex to the left. Soft tissues: Chronic postsurgical changes in the dorsal lumbosacral soft tissues Paraspinal muscles: Moderate to severe symmetric dorsal lumbar paraspinal muscular atrophy. Sacroiliac joints: Mild degenerative changes bilaterally. Vertebrae: Bones are demineralized. Age-indeterminate nondisplaced fracture at the junction of a prominent right anterior marginal osteophyte and and lateral margin of the right L2 vertebral body. Chronic-appearing nondisplaced fracture along the superior margin of the the same anterolateral osteophyte at the L1 level. Chronic-appearing superior L1 endplate compression fracture with approximate 40% height loss. No retropulsion. Postsurgical changes of posterior lateral L2-S1 fusion with bilateral fixation rods fixated via bilateral transpedicular screws from L2 through L5 and transsacral screws at S1 without evidence of hardware failure or hardware loosening. Bilateral laminectomies are present from L2 to L5 S1 and there are L5-S1 discectomy changes with disc spacer in place. Degenerative changes: L1-L2: Mild loss of disc height with vacuum phenomenon. Disc bulge with thickened and ossified ligamentum flavum and severe facet arthrosis with moderate to severe canal stenosis and severe right and mild left foraminal stenosis. L2-L3: Mildly degenerated disc with bilateral facet arthrosis. No significant canal or foraminal stenosis. L3-L4: Mildly degenerated disc with facet arthrosis without significant canal or foraminal stenosis. L4-L5: Degenerated disc and facet arthrosis with mild bilateral foraminal stenosis. No significant canal stenosis. L5-S1: Bilateral facet arthrosis with mild bilateral foraminal stenosis. No si gnificant canal stenosis. Additional findings: Calcified atherosclerosis in the abdominal aorta IMPRESSION: 1. Age-indeterminate nondisplaced fracture along an L2 right anterior marginal osteophyte at its junction with the vertebral body. 2. Chronic-appearing superior L1 endplate compression fracture. 3. Prior L2-S1 laminectomies and posterior fusion and L5-S1 discectomy. 4. Significantly demineralized bones. 5. Multilevel degenerative changes most notable for moderate to severe canal stenosis and severe right foraminal stenosis at L1-L2. Findings discussed with Dr. Martinez at 5:20 PM on 12/23/2018. Signed by: Dr. Galindo Corral M.D. on 12/23/2018 5:30 PM Dictated By: GALINDO CORRAL MD 29 Transcribed By: TAN on 12/23/181729 COPY TO: SALONI MARTINEZ MD CT CERVICAL SPINE WO 2018-12-23 16:47:00 [place] [id number] Patient Name: FRANKLIN CASANOVA MR #: [id number] : 1945 Age/Sex: 73/F Req #: [id number] Adm Physician: Ordered by: SALONI MARTINEZ MD Report #: [id number] Location: ER Room/Bed: Procedure: [id number] CT/CT CERVICAL SPINE WO Exam Date: Exam Time: REPORT STATUS: Signed Exams: Head and cervical spine CTs without IV contrast History: Trau ma, fall, pain Comparison studies: No prior exams are available on the PACS for comparison the time of dictation. Technique: Axial images were obtained from the brain and cervical spine. Coronal and sagittal images reconstructed from the axial data. Dose modulation, iterative reconstruction, and/or weight based adjustment of the mA/kV was utilized to reduce the radiation dose to as low as reasonably achievable. Intravenous contrast: None Findings: Head CT: Scalp: No abnormalities. Bones: No fractures, blastic or lytic lesions. Extra-axial spaces: No masses. No fluid collections. Brain sulci: Mildly prominent. Ventricles: Mild compensatory dilatation. No hydrocephalus. Parenchyma: No mass, acute hemorrhage or acute cortical vascular insults. Confluent hypodensity in the supratentorial white matter are nonspecific but most compatible with chronic microvascular ischemic changes. Mild generalized volume loss with slightly greater distortion volume loss along the anteromedial temporal lobes and hippocampus (left greater than right). Similar findings can be seen along the Alzheimer's/dementia spectrum in in the appropriate clinical setting. Sellar/suprasellar region: No abnormalities. Craniocervical junction: The foramen magnum is patent. No Chiari one malformation. Cervical spine CT: Fractures: None. Soft tissues: No gross abnormalities. Atlantoaxial articulation: Intact with moderate degenerative changes. Alignment: Minimal anterolisthesis of C3 3 on C4 is most likely degenerative in etiology. Mild kyphosis centered at C4-C5. Cervicomedullary junction: No abnormalities. The foramen magnum is patent. Vertebrae: No infection or neoplasm. Degenerative changes: Mildly degenerated disks at C4-C5, C5-C6. No significant canal stenosis. Varying degrees of moderate to severe multilevel facet arthrosis. Multilevel uncovertebral and facet arthrosis result in multilevel foraminal stenosis (moderate bilaterally at C3-C4, moderate right and mild left at C4-C5, moderate left and mild right at C5-C6). Incidental findings: Atherosclerotic calcifications in the carotid siphons in in the left intradural vertebral artery. IMPRESSION: Head CT: 1. No acute abnormalities. 2. Severe chronic microvascular ischemic changes. 3. Mild generalized volume loss with disproportionate anteromedial temporal lobe and hippocampal atrophy as described above. Cervical spine CT: 1. No cervical spine fracture or acute subluxation. 2. Minimal anterolisthesis of C3 on C4 is likely degenerative. 3. Multilevel degenerative changes as described. 4. Cannot exclude ligament, spinal cord and or vascular abnormalities on the basis of this examination. Signed by: Dr. Galindo Corral M.D. on 12/23/2018 4:59 PM Dictated By: GALINDO CORRAL MD 58 Transcribed By: TAN on 12/23/181658 COPY TO: SALONI MARTINEZ MD CT BRAIN WO 2018-12-23 16:47:00 [place] [id number] Patient Name: FRANKLIN CASANOVA MR #: [id number] : 1945 Age/Sex: 73/F Req #: [id number] Adm Physician: Ordered by: SALONI MARTINEZ MD Report #: [id number] Location: ER Room/Bed: Procedure: [id number] CT/CT BRAIN WO Exam Date: Exam Time: REPORT STATUS: Signed Exams: Head and cervical spine CTs without IV contrast History: Trauma, fall, pain Comparison studies: No prior exams are available on the PACS for comparison the time of dictation. Technique: Axial images were obtained from the brain and cervical spine. Coronal and sagittal images reconstructed from the axial data. Dose modulation, iterative reconstruction, and/or weight based adjustment of the mA/kV was utilized to reduce the radiation dose to as low as reasonably achievable. Intravenous contrast: None Findings: Head CT: Scalp: No abnormalities. Bones: No fractures, blastic or lytic lesions. Extra-axial spaces: No masses. No fluid collections. Brain sulci: Mildly prominent. Ventricles: Mild compensatory dilatation. No hydrocephalus. Parenchyma: No mass, acute hemorrhage or acute cortical vascular insults. Confluent hypodensity in the supratentorial white matter are nonspecific but most compatible with chronic microvascular ischemic changes. Mild generalized volume loss with slightly greater distort ion volume loss along the anteromedial temporal lobes and hippocampus (left greater than right). Similar findings can be seen along the Alzheimer's/dementia spectrum in in the appropriate clinical setting. Sellar/suprasellar region: No abnormalities. Craniocervical junction: The foramen magnum is patent. No Chiari one malformation. Cervical spine CT: Fractures: None. Soft tissues: No gross abnormalities. Atlantoaxial articulation: Intact with moderate degenerative changes. Alignment: Minimal anterolisthesis of C3 3 on C4 is most likely degenerative in etiology. Mild kyphosis centered at C4-C5. Cervicomedullary junction: No abnormalities. The foramen magnum is patent. Vertebrae: No infection or neoplasm. Degenerative changes: Mildly degenerated disks at C4-C5, C5-C6. No significant canal stenosis. Varying degrees of moderate to severe multilevel facet arthrosis. Multilevel uncovertebral and facet arthrosis result in multilevel foraminal stenosis (moderate bilaterally at C3-C4, moderate right and mild left at C4-C5, moderate left and mild right at C5-C6). Incidental findings: Atherosclerotic calcifications in the carotid siphons in in the left intradural vertebral artery.
--- OUTSIDE RECORDS SUMMARY | 2018-12-23 19:44 | XMS REPORT | Clinical Summary ---
Author Author [facility] Address Unknown Phone Unavailable Care Team Providers Care Family Law Attorney Name Role Phone Ce Liang PCP Unavailable [...] disc degeneration with endplate sclerosis and osteophytosis. [facility]-[id number] Procedure Note Interface, Radiology Results Incoming - [...] disc degeneration with endplate sclerosis and osteophytosis. [facility]-[id number] Performing Organization Address [facility] Phone Number [facility] [address] [place] [address] * XR Thoracic Spine 3 Vw (12/05/2018 6:02 PM CDT) Narrative Performed At EXAMINATION:XR THORACIC SPINE 3 VW [facility] CLINICAL HISTORY:Mid-back T-spine paininitial exam COMPARISON:None. FINDINGS: 3 views of the thoracic spine were obtained. Vertebral bodies are normal in height. No vertebral fracture. Degenerative changes. Alignment is normal. Soft tissues are normal. IMPRESSION: No acute osseous abnormality of the thoracic spine. [facility]-[id number] Procedure Note Interface, Radiology Results Incoming - 12/05/2018 6:08 PM CDT EXAMINATION: XR THORACIC SPINE 3 VW CLINICAL HISTORY: Mid-back T-spine pain initial exam COMPARISON: None. FINDINGS: 3 views of the thoracic spine were obtained. Vertebral bodies are normal in height. No vertebral fracture. Degenerative changes. Alignment is normal. Soft tissues are normal. IMPRESSION: No acute osseous abnormality of the thoracic spine. [facility]-[id number] Performing Organization Address [facility]/[employer] Phone Number [employer] [address] [place] [address] * XR Shoulder 2+ Vw Left (12/05/2018 [...] portions of the left hemithorax are unremarkable. [facility]-[id number] Procedure Note Interface, Radiology Results Incoming - [...] portions of the left hemithorax are unremarkable. [facility]-[id number] Performing Organization Address City/State/[facility] Phone Number [facility] [address] [place] [address] * XR Chest 1 Vw Portable (12/05/2018 [...] left humerus. The bones are otherwise unremarkable. [facility]-[id number] Procedure Note Interface, Radiology Results Incoming - [...] left humerus. The bones are otherwise unremarkable. [id number] Performing Organization Address City/State/Zipcode Phone Number [facility] [address] [place] [address] * CT Head Wo Contrast (12/05/2018 3:47 PM CDT) Narrative Performed At Procedure:[facility] REFERR[facility]ICIAN:INGRID MENDOZA HISTORY:fall COMPARISON: [...] evidence of acute intracranial abnormality or hemorrhage. [id number] Procedure Note Interface, Radiology Results Incoming - [...] evidence of acute intracranial abnormality or hemorrhage. [id number] Performing Organization Address City/State/Zipcode Phone Number [facility] [address] [place] [address] * CT Cervical Spine Wo Contrast (12/05/2018 [...] bony abnormality. See discussion above. Degenerative changes. [facility]-[id number] Procedure Note Interface, Radiology Results - 12/05/2018 [...] bony abnormality. See discussion above. Degenerative changes. [id number] Performing Organization Address City/State/Zipcode Phone Number [facility] [address] [place] [id number] after 12/22/2017 Insurance Payer Benefit Subscriber ID Type Phone Address Plan / Group HU[employer]NA MEDICARE HUMANA xxxxxxxxx PPO MEDICARE PPO/PFFS/E RS [facility] Advance Directives Patient has advance care planning documents on file. For more information, maximino e contact: Johnnie Mercado [address] [place] [address]
[2018-12-23] MEDS ORDERED: SODIUM CHLORIDE 0.9% 1000ML 1,000 ML IV ONE (19:45)
[2018-12-23] MEDS ORDERED: HYDROCODONE/APAP 10MG-325MG TAB PO PRN (19:45)
[2018-12-23 22:00] VITALS: BP 130/62
[2018-12-23 23:30] VITALS: BP 130/62
[2018-12-24] VITALS (7 sets, daily range): BP systolic 123–158; BP diastolic 59–97
[2018-12-24] MEDS ORDERED: SODIUM CHLORIDE 0.9% 1000ML 1,000 ML ONE (00:12)
[2018-12-24] MEDS: ONDANSETRON HCL INJ 2MG/ML 2ML 2 MG/ML VIAL IV PRN (05:00)
[2018-12-24 05:42] LABS: BASOPHILS % 0.4 % (0.0-1.0); EOSINOPHILS # (AUTO) 0.2 (0.0-0.4); EOSINOPHILS % 2.4 % (0.0-6.0); HEMATOCRIT 34.6 % (34.2-44.1); HEMOGLOBIN 11.7 g/dL (12.0-16.0); LYMPHOCYTES # (AUTO) 2.2 (1.0-3.2); MEAN CORPUSCULAR HEMOGLOBIN 32.2 pg (28-32); MEAN CORPUSCULAR HGB CONC 33.8 g/dL (31-35); MEAN CORPUSCULAR VOLUME 95.3 fL (81-99); MONOCYTES # (AUTO) 0.8 (0.2-0.8); MONOCYTES % 10.5 % (4.4-11.3); NEUTROPHILS # (AUTO) 4.1 (2.1-6.9); NEUTROPHILS % 56.6 % (38.7-80.0); PLATELET COUNT 163 x10e3/uL (140-360); RED BLOOD COUNT 3.63 x10e6/uL (3.6-5.1); RED CELL DISTRIBUTION WIDTH 11.6 % (11.7-14.4)
[2018-12-24 06:03] LABS: ALBUMIN 2.9 g/dL (3.5-5.0); ALBUMIN/GLOBULIN RATIO 0.7 (0.8-2.0); ANION GAP 13.5 mmol/L (8-16); CALCIUM 10.1 mg/dL (8.4-10.2); CREATININE, SERUM 1.4 mg/dL (0.57-1.11); POTASSIUM 3.5 mmol/L (3.5-5.1)
--- NOTE | 2018-12-24 06:53 | NUR ---
Gave report to oncoming nurse. Patient in bed. No pain or distress. call light within reach.
--- NOTE | 2018-12-24 10:00 | NUR ---
Patient and daughter at bedside (POA) received the notice form Medicare VARGAS. Form has been signed, copied placed in chart and the other given to POA.
[2018-12-24] MEDS ORDERED: ACETAMINOPHEN/CODEINE 300MG - 30MG TAB PO PRN (10:30)
--- NOTE | 2018-12-24 11:20 | NUR ---
Patient back from Hip Xray, stable, denies any pain this time, Dr Ornelas here for rounds
--- NOTE | 2018-12-24 11:38 | Diagnostic Imaging Report ---
Exam: AP pelvis and left and right hip History: Pain Comparison: None. Findings: No fracture or malalignment. Mild degenerative arthrosis of the hips. No abnormal soft tissue calcification or soft tissue defect. Impression: No acute osseous abnormality Signed by: Dr. Cruzito Ortiz M.D. on 12/24/2018 11:35 AM
[2018-12-24] MEDS ORDERED: ACETAMINOPHEN 325 MG TAB PO PRN (11:45)
[2018-12-24] MEDS: ACETAMINOPHEN/CODEINE 300MG - 30MG TAB PO PRN (14:19)
[2018-12-24] MEDS: LIDOCAINE 5% PATCH TP SCH (14:19)
[2018-12-24 15:37] LABS: FOLATE 11.5 ng/mL (7.0-15.4)
[2018-12-24] MEDS: FLUOXETINE HCL 20 MG CAP PO SCH (17:15)
[2018-12-24] MEDS: ENOXAPARIN SOD INJ 40 MG/0.4 ML SYR SC SCH (17:15)
--- NOTE | 2018-12-24 18:55 | NUR ---
Got report from previous nurse. call light within reach. Patient in bed.
--- NOTE | 2018-12-24 19:02 | History and Physical ---
CHIEF COMPLAINT: Falls, altered mental status. HISTORY OF PRESENT ILLNESS: This is a 73-year-old female, who was brought in by her daughter due to acute mental status changes and frequent falls at home. According to the patient and the daughter at bedside, the patient has been falling down for significant number of times over the last several weeks. She also endorses to have chronic back pain and which her assisted living physician has prescribed her several sedative medications. After reviewing her home medications, she takes Seroquel, Ativan, Mentor, among others, likely leading to her frequent falls. The patient is currently alert and oriented x3. Back to normal baseline according to the daughter. She does endorse that she occasionally will get confused and forgets to take her medications. Neurology was consulted. There is no reports of any chest pain, palpitation, nausea, or vomiting. The patient was seen and evaluated at bedside on the medical floor. Currently, she is doing well with no other issues. REVIEW OF SYSTEMS: Pertinent positives: Frequent falls, confusion. Pertinent negatives: Denies any chest pain, palpitation, nausea, vomiting, diarrhea, dysuria, hematuria, frequency, urgency, lightheadedness, dizziness, abdominal pain, headaches, shortness of breath, cough, congestion, fever, or any other complaints. Rest of 14-point review of systems have been reviewed with the patient and are negative. ALLERGIES: SULFA, MORPHINE, TERFENADINE, FELDENE. HOME MEDICATIONS: Fosamax 70 mg at bedtime, gabapentin 300 mg p.o. b.i.d., hydrochlorothiazide 25 mg daily, Mentor 5/325 I believe she takes it daily, Ativan 0.5 mg a day, Seroquel 25 mg daily, senna. She also takes sitagliptin and metformin, diltiazem, aspirin, fluoxetine, levothyroxine, hypertension drug, Exelon patch. PAST MEDICAL HISTORY: Dementia, hypertension, hypothyroidism, depression. PAST SURGICAL HISTORY: Reports none. FAMILY HISTORY: Hypertension, diabetes. SOCIAL HISTORY: No drugs, no alcohol. Does not smoke. Lives with her daughter. PHYSICAL EXAMINATION: VITAL SIGNS: Temperature is 98.9, pulse 61, respiratory rate is 19, blood pressure was 123/60, pulse ox 95% on room air. GENERAL: Not in acute distress. Alert, oriented x3. Cooperative on examination. HEENT: Head normocephalic, atraumatic. Eyes, pupils are equal, round, and reactive to light bilaterally. Extraocular movements are intact bilaterally. Throat, no evidence of erythema or exudates in the posterior pharynx. Has poor dentition. NECK: Supple. Good range of motion. PULMONARY: Clear to auscultation bilaterally. No wheezing, rales or rhonchi. No crackles appreciated. CARDIOVASCULAR: Positive S1, S2. No murmurs, rubs, or gallops appreciated. ABDOMEN: Soft, nondistended, nontender to palpation. Bowel sounds are present. MUSCULOSKELETAL: Strength is 5/5 throughout. No evidence of any muscle deficits on examination. No weakness appreciated. NEUROLOGIC: Cranial nerves 2 through 12 grossly intact. No evidence of any neurologic deficits on exam. SKIN: Intact. Warm to touch. Good cap refill. PSYCHIATRIC: Normal affect and mood. EXTREMITIES: No edema. Good range of motion. LABORATORY DATA: Show white count 7.2, hemoglobin 9.7, hematocrit 35, platelets of 163. Coagulation; PT 13.9, INR 1, PTT 25. Chemistry; sodium 143, potassium 3.5, chloride 107, bicarb 26, anion gap of 13, BUN is 25, creatinine is 1.4, glucose is 162. Urinalysis negative. Microbiology; urine cultures negative. Lumbar CT shows age indeterminate nondisplaced fracture along the L2 right anterior marginal osteophyte at the junction between vertebral body. Chronic appearing superior L1 endplate compression fracture. Chronic appearing superior L1 endplate compression fracture. Has multilevel degenerative changes most notable for ajottvyg-py-ifuapi canal stenosis with severe foraminal stenosis at L1 through L2. CT head was negative. CT cervical spine was negative. Hip x-ray is pending. IMPRESSION: 1. Metabolic encephalopathy, likely secondary to polypharmacy from sedating medications including Ativan, Seroquel, Mentor and gabapentin. 2. Frequent falls, likely secondary to polypharmacy with no evidence of any infection. 3. Hypertension. 4. Hypothyroidism. 5. Concern for underlying dementia, on Exelon patch. 6. nondisplaced fracture of L2 osteophyte. PLAN: At this time, imaging studies were negative. CT brain with no acute findings. Due to the patient's forgetfulness, the daughter reports that she is still forgetful. We will go ahead and get Neurology consult on this case. The patient has no source of infection with all imaging studies including labs found to be negative. Her UA was negative. No evidence of any fever. I feel like the patient is at baseline, alert and oriented x3, but the daughter denies that. We will likely need MRI of the brain. We will go ahead and get a TSH level as well. In relation to this nondisplaced fracture of L2, seems to be just treatment of conservative treatment at this time. No reports of any bowel or urinary incontinence. There is no evidence of any kind of spinal compromise. It seems like the patient has had multiple falls likely be indeterminate in age and likely also has chronic back issues as well. At this time, pain control with Tylenol with codeine and lidocaine patch. Get PT and OT to work with the patient. I have also suggested to the family about intermediate in the event they suggests that or want that, that has been ordered as well. We will also put her on Lovenox for DVT prophylaxis. MD LAURA Poole/DORON /[id number]
--- NOTE | 2018-12-24 20:13 | Consultation ---
DATE OF CONSULTATION: 12/24/2018 HISTORY OF PRESENT ILLNESS: Ms. Whalen is a 73-year-old right-hand dominant woman admitted to [facility] on December 23, 2018, status post fall and with worsening confusion. According to the patient and her daughter, Ms. Whalen has experienced multiple falls recently. Her most recent fall, which occurred on the day of admission, was not witnessed by the patient's daughter. However, the patient's daughter was notified by staff at [facility] that the patient fell while trying to get out of bed. It is unknown whether or not the patient hit her head. It is unknown whether or not the patient lost consciousness. Approximately 1 hour after she was known to fall, Ms. Whalen endorsed low back pain. Emergency Medical Services were notified and the patient was transported to [facility] for further evaluation. In addition to the recent falls, Ms. Whalen's daughter endorses acutely worsened confusion. She reports the patient, at baseline, is oriented to person, family members, caregivers, place, time, as well as upcoming events (physician's appointments, family gatherings, etc.) However, it should be noted, Ms. Whalen was prescribed Exelon when she was hospitalized for confusion approximately one year ago. She has continued to take this medication despite the fact she has not seen a neurologist in over a year. The patient's daughter is concerned by the recent addition of medications to Ms. Whalen's long list of medications. Specifically, the daughter reports hydrochlorothiazide was prescribed approximately six months ago. Metoprolol was prescribed as recently as November 27. Ms. Whalen does take hydrocodone/acetaminophen 5/325 mg by mouth twice daily for treatment of chronic back pain. Her daughter reports the patient's pain management physician has gradually decreased the dose of [place]. Previously, Ms. Whalen was taking higher doses more frequently. Ms. Whalen's daughter does not endorse diagnosis of dementia, even though the patient is being treated with rivastigmine. According to the patient's daughter, Ms. Whalen's worsening confusion has occurred sometime within the past week. When the daughter last saw her on Tuesday, December 18, 2018, the patient was at her neurological baseline, which is described above. REVIEW OF SYSTEMS: Unable to obtain secondary to the patient being encephalopathic. PAST MEDICAL HISTORY: Hypertension, diabetes mellitus type 2, depression, chronic back pain, dementia, presumably of the Alzheimer's type, and osteoporosis. PAST SURGICAL HISTORY: Spine surgery-surgeries, total hysterectomy, cholecystectomy, repair of a left humerus fracture, left shoulder surgery, and tonsillectomy. Past hospitalizations: Surgeries/procedures as listed, multiple hospitalizations for falls, childbirth. FAMILY MEDICAL HISTORY: Diabetes mellitus. SOCIAL HISTORY: Ms. Whalen is a . She lives in an assisted living facility ([facility]). Ms. Whalen is retired. There is no reported current or prior tobacco, alcohol, or recreational drug use. 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 HOSPITAL MEDICATIONS: Acetaminophen, Tylenol No. 3, aspirin, Lovenox, Prozac, [place] 10/325 mg, Synthroid, Lidoderm patch, Cozaar, Zofran, Exelon patch 9.5 mg. ALLERGIES: FELDENE, SULFA, MORPHINE, AND TERFENADINE. NO KNOWN FOOD ALLERGIES. NO KNOWN ALLERGIES TO LATEX. NO KNOWN ALLERGIES TO IODINE OR OTHER CONTRAST MATERIALS. PHYSICAL EXAMINATION: VITAL SIGNS: Height 70 inches, weight 202 pounds, BMI 37.6 kg/m2. Blood pressure 131/60 mmHg, pulse 62 beats per minute, respiratory rate 18 breaths per minute, and oxygen saturation 97% on room air. GENERAL: The patient is awake and alert, does not appear distressed. Morbidly obese. HEENT: Normocephalic, atraumatic. Pupils are equal, round, and reactive to light. Moist mucous membranes. NECK: Supple. No appreciable thyromegaly. Right carotid bruit is appreciated. CARDIOVASCULAR: S1, S2. Regular rate and rhythm. No murmurs, rubs, or gallops. RESPIRATORY: Clear to auscultation bilaterally. No wheezes, rhonchi, or rales. EXTREMITIES: The skin is warm and dry. No clubbing, cyanosis, or edema. The posterior tibial and dorsalis pedis pulses are 1+ and symmetric. SKIN: No rashes or lesions. NEUROLOGIC: MEMORY/ATTENTION: The patient is awake and alert, oriented to person, place ([facility], [facility], not [facility], [facility]), time (date, day of the week, month, not year), and moderately to situation. CRANIAL NERVES: Cranial nerve one-not tested. Cranial nerve two, three, four, and six-pupils are equal, round, reactive briskly to light (from 4 mm to 2 mm). Extraocular movements intact. No nystagmus. Cranial nerve five-sensation to light touch and pinprick is intact in the bilateral V1 through V3 distributions. Strength in the temporalis and masseter muscles is within normal limits. Cranial nerve seven- the face is symmetric as are all facial movements. Strength is within normal limits. Cranial nerve eight-hearing is intact to finger rub bilaterally. Cranial nerve nine, ten-the soft palate elevates equally and symmetrically. Cranial nerve eleven-normal strength of the bilateral sternocleidomastoid and trapezius muscles. Cranial nerve twelve- the tongue protrudes midline and moves symmetrically from [id number]-kh-htfm. STRENGTH: Bulk is normal. Strength is 5/5 in the bilateral deltoids, biceps, triceps, wrist flexors and extensors, finger flexors and extensors, intrinsic hand muscles, knee flexors, extensors, ankle dorsiflexion, plantar flexion, and intrinsic foot muscles. Strength is approximately 4/5 in the bilateral hip flexors, limited by pain. Tone is normal. DTRs: Deep tendon reflexes are 1+ and symmetric at the triceps, biceps, and brachioradialis. Deep tendon reflexes are absent and symmetric at the patellas and Achilles. Plantar responses are flexor bilaterally. SENSATION: Sensation is diminished to light touch and pinprick in a stocking distribution. CEREBELLAR: Xufmxc-uvsl-zkxjxf and heel-dunn movements are intact without dysmetria or other impairment. GAIT: Deferred. SPEECH: Spontaneous speech is normal without appreciable dysarthria. There is questionable expressive aphasia present. Repetition is intact. INVOLUNTARY MOVEMENTS: None. PRONATOR DRIFT: None. LABORATORY DATA: The most recent comprehensive metabolic panel is significant for an elevated creatinine of 1.40, a decreased estimated GFR of 37, an elevated serum glucose of 162, an elevated total bilirubin of 1.3, an elevated AST of 93, an elevated ALT of 72, decreased albumin of 2.9, elevated globulin of 3.9. Cardiac enzymes are negative x1. TSH 0.438. CBC with differential and platelets reveals a white blood cell count of 7.23 with a normal differential. The hemoglobin and hematocrit are 11.7 and 34.6, respectively. The platelet count is 163. The coagulation profile is within normal limits. Urinalysis is significant only for trace blood. Urine culture collected on December 23, 2018, reveals no growth at 18-24 hours. DIAGNOSTIC STUDIES: Electrocardiogram of 12/23/2018: Normal sinus rhythm at 62 beats per minute. Hip x-ray on 12/23/2018: No acute osseous abnormality. CT of the brain without contrast on 12/23/2018: On my review, there is no evidence of recent large territorial ischemia, hemorrhage, mass, or mass effect. There is mild diffuse cerebral atrophy, more pronounced in the anteromedial temporal lobe and hippocampus. Their findings compatible with xgjesptl-en-jnmtaz chronic small vessel ischemic disease. CT of the cervical spine on 12/23/2018: No cervical spine fracture or acute subluxation. Minimal anterolisthesis of C3 on C4 is likely degenerative. There are multilevel degenerative changes as described in the body of the radiology report. Injuries to the ligament, spinal cord, or vascular abnormalities cannot be assessed based on this examination. CT of the lumbar spine on 12/23/2018: There is an age indeterminate nondisplaced fracture along an L2 right anterior marginal osteophyte at its junction with the vertebral body. Chronic appearing superior L1 endplate compression fracture. Prior L2 through S1 laminectomies and posterior fusion and L5-S1 diskectomy. Significantly demineralized bones. Multilevel degenerative changes most notable for yiwkpxot-bg-ntefjj canal stenosis and severe right foraminal stenosis at L1-L2. ASSESSMENT AND PLAN: Ms. Whalen is a 73-year-old right-hand dominant woman with an extensive past medical history, admitted to [facility] on December 23, 2018, status post fall with confusion. The patient has undergone a thorough neurological examination with findings detailed above. Her laboratory data and other diagnostic studies have been reviewed and are detailed and are documented above. RECOMMENDATIONS: Are as follows: 1. Additional blood work will be ordered. This will include: An ammonia level, vitamin B1 level, vitamin B12 level, methylmalonic acid, folate, rapid plasma reagin, and blood cultures. These results as well as the patient's urine culture will be reviewed when available. 2. MRI of the brain without contrast will be ordered. 3. Treatment with the patient's home medication of Exelon 9.5 mg apply one patch daily will be continued. However, based on my review of the patient's CT of the brain without contrast, it appears Ms. Whalen has a vascular dementia. Therefore, it is unlikely she would receive much benefit from treatment with Exelon or other medication for memory loss. 4. Treatment with sedative/hypnotic and pain medication should be limited as these medications will alter the patient's sensorium. To that end, the dosing interval for Tylenol No. 3 and [place] has been increased to q.8 hours as needed. 5. Utilize environmental cues to combat delirium. 6. Right carotid bruit was appreciated on examination. Bilateral carotid ultrasound with Doppler will be ordered for further evaluation. 7. The etiology of the patient's frequent falls may be multifactorial. Based on her examination and review of her listed medications, it does appear Ms. Whalen has a peripheral neuropathy, probably secondary to diabetes mellitus. This would cause weakness in the lower extremities as well as impairment of gait and balance, which could result in frequent falls. Orthostatic vital signs have been ordered and are pending. Physical Therapy evaluation has been ordered and is pending. 8. Defer treatment of the remaining medical comorbidities to the primary and other services following the patient. Thank you for this consultation. I will continue to follow the patient while she remains in the hospital. TIME SPENT: 70 minutes. Jenny Ornelas MD CP/DORON /[id number] BRITTNY
[2018-12-25] VITALS (7 sets, daily range): BP systolic 136–176; BP diastolic 62–72
[2018-12-25 06:00] LABS: BASOPHILS % 0.4 % (0.0-1.0); EOSINOPHILS # (AUTO) 0.1 (0.0-0.4); EOSINOPHILS % 1.5 % (0.0-6.0); HEMATOCRIT 33.9 % (34.2-44.1); HEMOGLOBIN 11.8 g/dL (12.0-16.0); LYMPHOCYTES # (AUTO) 1.9 (1.0-3.2); LYMPHOCYTES % 26.2 % (18.0-39.1); MEAN CORPUSCULAR HEMOGLOBIN 32.4 pg (28-32); MEAN CORPUSCULAR HGB CONC 34.8 g/dL (31-35); MEAN CORPUSCULAR VOLUME 93.1 fL (81-99); MONOCYTES # (AUTO) 0.6 (0.2-0.8); MONOCYTES % 8.8 % (4.4-11.3); NEUTROPHILS # (AUTO) 4.6 (2.1-6.9); NEUTROPHILS % 62.7 % (38.7-80.0); PLATELET COUNT 168 x10e3/uL (140-360); RED BLOOD COUNT 3.64 x10e6/uL (3.6-5.1); RED CELL DISTRIBUTION WIDTH 11.5 % (11.7-14.4)
[2018-12-25 06:19] LABS: ANION GAP 14.2 mmol/L (8-16); CALCIUM 9.5 mg/dL (8.4-10.2); CREATININE, SERUM 1.22 mg/dL (0.57-1.11); POTASSIUM 3.2 mmol/L (3.5-5.1)
[2018-12-25] MEDS: LEVOTHYROXINE SODIUM 75 MCG TAB PO SCH (06:20)
[2018-12-25] MEDS: RIVASTIGMINE TRANSDERMAL 9.5MG/24HOURS PATCH TD SCH (06:20)
--- NOTE | 2018-12-25 07:10 | NUR ---
Report given to oncoming nurse. Call light within reach.
--- NOTE | 2018-12-25 07:21 | NUR ---
PATIENT IN BED RESTING WITH EYES CLOSED, NO RESPIRATORY DISTRESS OBSERVED. PUREWICK CATHETER IN PLACE DRAINING YELLOW URINE. BED IN LOWER POSITION, CALL LIGHT AT REACH.
[2018-12-25] MEDS: ASPIRIN 81 MG CHEW TAB PO SCH (09:21)
[2018-12-25] MEDS: FLUOXETINE HCL 20 MG CAP PO SCH ×2 (09:22→17:18)
[2018-12-25] MEDS: LOSARTAN POTASSIUM 100 MG TAB PO SCH (09:22)
[2018-12-25] MEDS ORDERED: POTASSIUM CHLORIDE 20 MEQ TAB CR PO ONE (09:45)
[2018-12-25] MEDS: HYDROCODONE/APAP 10MG-325MG TAB PO PRN (11:30)
--- NOTE | 2018-12-25 11:30 | NUR ---
SPOKE WITH MD REGARDING ABNORMAL LAB RESULT. NEW ORDER RECEIVED AND IMPLEMENTED.
[2018-12-25] MEDS: LIDOCAINE 5% PATCH TP SCH (11:35)
--- NOTE | 2018-12-25 14:12 | Progress Note ---
DATE: 12/25/2018 Medicine Progress Note SUBJECTIVE: The patient is doing well, alert and oriented on examination. She is much improved compared to yesterday. PT has been consulted as well. Working on prison facility. OBJECTIVE: VITAL SIGNS: Temperature is 97.5, pulse is 68, respiratory rate is 14, blood pressure 166/71, pulse ox 97% on room air. GENERAL: Not in acute distress. Alert and oriented x3. Cooperative on examination. HEENT: Head is normocephalic and atraumatic. Eyes; pupils are equal, round, and reactive to light bilaterally. Extraocular movements are intact bilaterally. Throat, no evidence of erythema or exudates in the posterior pharynx. Has poor dentition. NECK: Supple. Good range of motion. PULMONARY: Clear to auscultation bilaterally. No wheezing, no rales, no rhonchi, no crackles appreciated. CARDIOVASCULAR: Positive S1, S2. No murmurs, rubs, or gallops appreciated. ABDOMEN: Soft, nondistended, and nontender to palpation. Bowel sounds present. MUSCULOSKELETAL: Strength is 5/5 throughout. No evidence of any muscle deficits on examination. No weakness appreciated. NEUROLOGICAL: Cranial nerves 2 through 12 grossly intact. No evidence of any neurological deficits on exam. SKIN: Intact. Warm to touch. Good cap refill. PSYCHIATRIC: Normal affect and mood. EXTREMITIES: No edema. Good range of motion throughout. LABORATORY FINDINGS: Show white count 7.3, hemoglobin 11.8, hematocrit 34, and platelets of 168. Coagulations are normal. Chemistry; sodium 141, potassium 3.2, chloride 107, bicarb is 23, anion gap of 14, BUN is 22, creatinine 1.32, glucose 157, calcium 9.5. Vitamin B12 is 505, folate level 11.5, TSH is 0.438, vitamin B1 51. Urinalysis negative. MICROBIOLOGY: Blood cultures, no growth. Urine cultures are negative. IMAGING STUDIES: Chest x-ray found to be negative. IMPRESSION: 1. Metabolic encephalopathy, likely secondary to polypharmacy from sedating medications. 2. including Ativan, Seroquel, [place] and gabapentin. 3. Frequent falls secondary to polypharmacy with no evidence of infection, possibly underlying peripheral neuropathy. 4. Hypertension. 5. Hypothyroidism. 6. Concerns for underlying dementia, per Neurology feels to be likely vascular dementia. 7. Nondisplaced fracture of L2 osteophyte. PLAN: At this time, MRI of the brain has been ordered by Neurology to further evaluate. She is on Exelon patch, which we will continue. RPR is pending. Vitamin D1 and methylmalonic acid are pending as well. There is no source of infection. Cultures have been negative. The patient is alert and oriented x3 on examination. We will continue work with PT and OT. Arrange for prison facility, which I will discuss with Case Management. Continue to treat conservatively with pain control for nondisplaced fracture of L2. Put on Lovenox for DVT prophylaxis. Discussed plan of care with daughter at bedside including the patient with nursing staff. MD LAURA Poole/DORON /[id number]
--- NOTE | 2018-12-25 14:17 | NUR ---
CHOICE LETTER SIGNED FOR [facility], FAXED CLINICALS TO [phone]
--- NOTE | 2018-12-25 15:20 | NUR ---
PATIENT OFF UNIT TO RADIOLOGY.
--- NOTE | 2018-12-25 16:10 | NUR ---
PATIENT BACK TO UNIT FROM RADIOLOGY.
--- NOTE | 2018-12-25 16:11 | Diagnostic Imaging Report ---
History: CVA Comparison studies: CT head 12/23/2018 Technique: Sagittal T2; axial DWI, FLAIR, MPGR, T1, Coronal FLAIR. Intravenous contrast: None Findings: Scalp: Normal in signal . No masses . Bone marrow: Normal in signal intensity. Extra-axial: No masses, no fluid collections. Brain sulci: Mildly prominent diffusely and moderately prominent at the sylvian fissure. Ventricles: Mildly prominent more significant at the temporal horns. No hydrocephalus . Parenchyma: Confluent T2/flair hyperintensities of the periventricular and deep white matter. Similar changes at the danna No masses, hemorrhage, acute or chronic vascular insults. Suprasellar region: No abnormalities. Craniocervical junction: No abnormalities. Patent foramen magnum. No Chiari one malformation. Vessels: Normal flow-voids in the arteries and sinuses. IMPRESSION: 1. No acute abnormalities area 2. Severe chronic microvascular ischemic changes of the white matter. 3. Mild volume loss more significant at the bilateral temporal lobes, nonspecific and could be seen in some dementias such as Alzheimer's disease Signed by: DR Cedric Genao M.D. on 12/25/2018 4:08 PM
[2018-12-25] MEDS: ENOXAPARIN SOD INJ 40 MG/0.4 ML SYR SC SCH (17:18)
--- NOTE | 2018-12-25 19:00 | NUR ---
Report and rounds completed. Patient in bed resting, Call light within reach. Will continue to monitor.
[2018-12-26] VITALS: BP 136/63
[2018-12-26] MEDS: ONDANSETRON HCL INJ 2MG/ML 2ML 2 MG/ML VIAL IV PRN (00:07)
[2018-12-26 04:00] VITALS: BP 121/56
[2018-12-26] MEDS: ACETAMINOPHEN/CODEINE 300MG - 30MG TAB PO PRN (05:35)
[2018-12-26] MEDS: RIVASTIGMINE TRANSDERMAL 9.5MG/24HOURS PATCH TD SCH (05:56)
[2018-12-26] MEDS: LEVOTHYROXINE SODIUM 75 MCG TAB PO SCH (05:56)
--- NOTE | 2018-12-26 06:00 | NUR ---
Resting in bed, eyes closed, resp even and unlabored. Sister at bedside. Call light within reach. Will continue to monitor.
--- NOTE | 2018-12-26 07:16 | NUR ---
PATIENT IN BED RESTING WITH NO S/S OF DISCOMFORT. DENIED PAIN AT THIS TIME. PUREWICK EXTERNAL CATHETER REPLACED. BED IN LOWER POSITION, CALL LIGHT AT REACH. FAMILY AT BED SIDE.
[2018-12-26 07:20] VITALS: BP 143/65
[2018-12-26 07:41] VITALS: BP 143/65
[2018-12-26] MEDS: FLUOXETINE HCL 20 MG CAP PO SCH ×2 (09:11→17:05)
[2018-12-26] MEDS: LOSARTAN POTASSIUM 100 MG TAB PO SCH (09:11)
[2018-12-26] MEDS: ASPIRIN 81 MG CHEW TAB PO SCH (09:11)
[2018-12-26] MEDS: HYDROCODONE/APAP 10MG-325MG TAB PO PRN (11:20)
--- NOTE | 2018-12-26 11:20 | NUR ---
PATIENT EXERCISED IN BED WITH PHYSICAL THERAPY. C/O BACK PAIN, MEDICATED ORDERED. WILL CLOSELY MONITOR.
[2018-12-26 11:54] VITALS: BP 148/65
[2018-12-26] MEDS: LIDOCAINE 5% PATCH TP SCH (13:36)
[2018-12-26 16:30] VITALS: BP 159/69
--- NOTE | 2018-12-26 16:57 | NUR ---
PATIENT ASSISTED WITH DIAPER CHANGE, REPOSITIONED IN BED. CALL LIGHT AT REACH.
[2018-12-26] MEDS: ENOXAPARIN SOD INJ 40 MG/0.4 ML SYR SC SCH (17:05)
--- NOTE | 2018-12-26 17:10 | NUR ---
MEDICAL RESORT CALLED TO GIVE REPORT, PROJECT MANAGEMENT IT SPECIALIST STATED THAT RECEIVING NURSE WILL CALL BACK. AWAITING CALL.
--- NOTE | 2018-12-26 18:27 | NUR ---
PATIENT IS ABOUT TO BE TRANSFERRED TO INTERMEDIATE FACILITY. REPORT CALLED AND GIVEN TO RECEIVING NURSE. PATIENT DAUGHTER NOTIFIED OF THE TRANSFER. PATIENT SISTER AT BED SIDE AT THIS TIME. AWAITING FOR TRANSPORTATION, CALL LIGHT AT REACH.
--- NOTE | 2018-12-27 09:31 | Discharge Summary ---
FINAL DISCHARGE DIAGNOSES: 1. Metabolic encephalopathy, likely secondary to polypharmacy from sedating medications including Ativan, Seroquel, [place], and gabapentin. 2. Frequent falls secondary to polypharmacy with no evidence of any infection with possibly underlying nephropathy. 3. Hypertension. 4. Hypothyroidism. 5. Concern for underlying dementia, likely re-vascular in nature according to Neurology. 6. Nondisplaced fracture of L2 osteophyte. 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 PHYSICAL EXAMINATION: VITAL SIGNS: Temperature is 97.7, pulse 66, respiratory rate 14, blood pressure 140/65, pulse ox 93% on room air. LAB FINDINGS: Show white count 7.2, hemoglobin 11.8, hematocrit 34, and platelets of 168. Coagulation, INR is 1, PT 13, PTT 25. Chemistry, sodium 141, potassium 3.2, chloride 107, bicarb 23, anion gap of 14, BUN 22, creatinine 1.22, glucose is 157, calcium is 9.5, and albumin is 2.9. LFTs were slightly elevated. Vitamin B12 is 505, Troponins were negative. Urinalysis negative. Serology, RPR nonreactive. MICROBIOLOGY: Blood cultures negative. Urine cultures were negative. IMAGING STUDIES: Lumbar CT shows age indeterminate nondisplaced fracture along the L2 and right anterior marginal osteophyte at the junction of the vertebral body. Chronic appearing superior L1 endplate compression fracture. Prior L2-S1 laminectomy, posterior fusion L5-S1 Multi-degenerative changes mostly notable for moderate to severe canal stenosis and severe foraminal stenosis at L1 through L2. Cervical CT shows no cervical spine fracture or acute subluxation. CT of the brain was found to be negative as well. Hip x-ray was negative. MRI of the brain was also found to be negative for any acute findings. Prior ultrasound was found to be negative for any acute findings. HOSPITAL COURSE: This is a 73-year-old female, who came into the ED after having frequent falls at home and concerned for underlying confusion. The patient was admitted and Neurology was consulted. After reviewing the patient's home medication, it seems to be that the patient likely has been falling due to multiple polypharmacy from sedating medications including Ativan, Seroquel, [place], and gabapentin that she was taking at home. There was no evidence of any infection that was found while here in the hospital. Her UA was negative. White count was normal. She was afebrile. It was also presumed that the patient's fall could be from peripheral neuropathy. Neurology was consulted as well while here in the hospital and an MRI of the brain was performed. It was felt like the patient likely has vascular dementia leading to underlying dementia concerns. The patient was also cleared by Neurology for discharge to long term facility. She did work with PT and OT while here in the hospital. Blood pressure is well controlled and managed. Other things that were found on imaging studies, she did have a nondisplaced fracture of the L2 osteophytes, which is currently going to be treated conservatively. The patient will be on lidocaine patches and pain control upon discharge. The patient otherwise was doing well no other issues. She will be discharged to [facility] for further rehabilitation. The patient has been cleared per Neurology for discharge home. The patient was alert and oriented prior to being discharged back to normal baseline. I have discussed at length with the family at bedside. On day of discharge, vital signs stable, labs reviewed and stable. The patient seen, evaluated, and examined thoroughly on the day of discharge. No other complaints. The patient verbalized understanding and agreed with the plan of care. A followup appointment as an outpatient with primary care physician in 1 week and neurologist in 2 weeks. MEDICATIONS: See med reconciliation form including Tylenol No.3 for pain control p.r.n. DISPOSITION: Home. CONDITION: Stable. DIET: Heart healthy. In any event of new or worsening symptoms, the patient is advised to come back to the ED for further evaluation. Discharge summary took greater than 35 minutes. The patient is also advised to follow up with Neurology in 2 weeks' time. MD LAURA Poole/DORON /[id number]
== END 2018-12-26 20:09 ==
LOC: ER 14:57 → ERHOLD 19:42 → IMCU 22:54
PROVIDERS: ADMIT Internal Medicine; ATTEND Internal Medicine
DX: G92 Toxic encephalopathy (principal); M48.56XA Collapsed vertebra, not elsewhere classified, lumbar region, initial encounter for fracture; R41.82 Altered mental status, unspecified; Z91.81 History of falling; F03.90 Unspecified dementia, unspecified severity, without behavioral disturbance, psychotic disturbance, mood disturbance, and anxiety; I10 Essential (primary) hypertension; E03.9 Hypothyroidism, unspecified; F32.9 Major depressive disorder, single episode, unspecified; Z83.3 Family history of diabetes mellitus; Z82.49 Family history of ischemic heart disease and other diseases of the circulatory system; T42.4X5A Adverse effect of benzodiazepines, initial encounter; T43.595A Adverse effect of other antipsychotics and neuroleptics, initial encounter; T40.605A Adverse effect of unspecified narcotics, initial encounter; T42.6X5A Adverse effect of other antiepileptic and sedative-hypnotic drugs, initial encounter; W01.10XA Fall on same level from slipping, tripping and stumbling with subsequent striking against unspecified object, initial encounter; Y93.9 Activity, unspecified; Y92.019 Unspecified place in single-family (private) house as the place of occurrence of the external cause; Z88.5 Allergy status to narcotic agent; Z88.2 Allergy status to sulfonamides; Z88.8 Allergy status to other drugs, medicaments and biological substances; E11.42 Type 2 diabetes mellitus with diabetic polyneuropathy; Z79.82 Long term (current) use of aspirin
CPT/HCPCS: 36415 ×3; 70450; 70551; 72125; 72131; 73521; 80048; 80053 ×2; 81001; 82140; 82550; 82553; 82607; 82746; 83735; 83921; 84425; 84443; 84484; 85025 ×3; 85610; 85730; 86592; 87040; 87086; 93005; 93880; 97139; 97162; 97530 ×2; 99284; G0378 ×4; J1650 ×3; J2405 ×2; J7030